=== PATIENT | male | born 2000 | race African-American/Black ===

== ENCOUNTER 2025-02-23 18:56 | Emergency (ER) | payer SELFPAY ==
[~2025-02-23] VITALS: Ht 175.3 cm; Wt 70.4 kg
--- NOTE | 2025-02-23 19:18 | ED.PDOC ---
Eye-HPI HPI Comments PT PRESENTED TO ED FOR RIGHT UPPER MOLAR TOOTH PAIN X2 WEEK AGO WITH DECREASED APPETITE. PT STATED HE HAS NOT HAS HIS WISDOM TEETH REMOVED YET. HE HAS DIFFICULTY SWALLOWING, BREATHING, DENIES CHEST PAIN OR SHORTNESS OF BREATH NOTES NO FEVERS OR CHILLS NAUSEA OR VOMITING.. Chief Complaint: Tooth Pain Time Seen by MD: 19:04 Reviewed Notes: Nurses Notes, Medications, Allergies Allergies: Coded Allergies: No Known Drug Allergy (Verified Allergy, Unknown, 02/23/25) Home Meds Active Scripts Ibuprofen (Ibuprofen) 800 Mg Tab, 800 MG PO Q8HP PRN for 6 Days, #18 TAB Prov:SEVENMARY KATEK [employer]OR FORKLIFT OPERATOR 02/23/25 Amoxicillin & Pot Clavulanate (AUGMENTIN TABLET) 875 Mg Tb, 875 MG PO BID for 7 Days, #14 TAB Prov:PAPA AMEZCUA GENERAL LABOR FORKLIFT OPERATOR 02/23/25 Information Source: Patient Past Medical History PAST MEDICAL HISTORY: Denies Surgical History: Denies all surgeries Family History Family History: Unknown Social History Smoker: Non-Smoker Alcohol: Denies ETOH Use Drugs: Denies Drug Use Constitutional: denies: chills, diaphoresis, fatigue, fever, malaise, sweats, weakness, others EENTM: reports: others (DENTAL PAIN); denies: blurred vision, double vision, ear bleeding, ear discharge, ear drainage, ear pain, ear ringing, eye pain, eye redness, hearing loss, mouth pain, mouth swelling, nasal discharge, nose bleeding, nose congestion, nose pain, photophobia, tearing, throat pain, throat swelling, voice changes Respiratory: denies: cough, hemoptysis, orthopnea, SOB at rest, shortness of breath, SOB with excertion, stridor, wheezing, others Cardiovascular: denies: chest pain, dizzy spells, diaphoresis, Dyspnea on exertion, edema, irregular heart beat, left arm pain, lightheadedness, palpitations, PND, syncope, others Gastrointestinal: denies: abdomen distended, abdominal pain, blood streaked bowels, constipated, diarrhea, dysphagia, difficulty swallowing, hematemesis, melena, nausea, poor appetite, poor fluid intake, rectal bleeding, rectal pain, vomiting, others Genitourinary: denies: burning, dysuria, flank pain, frequency, hematuria, incontinence, penile discharge, penile sore, pain, testicle pain, testicle swelling, urgency, others Neurological: denies: dizziness, fainting, headache, left sided numbness, left sided weakness, numbness, paresthesia, pre-existing deficit, right sided numbness, right sided weakness, seizure, speech problems, tingling, tremors, weakness, others Musculoskeletal: denies: back pain, gout, joint pain, joint swelling, muscle pain, muscle stiffness, neck pain, others Integumetry: denies: bruises, change in color, change in hair/nails, dryness, laceration, lesions, lumps, rash, wounds, others Allergic/Immunocompromised: denies: Difficulty Healing, Frequent Infections, Hives, Itching, others Hematologic/Lymphatic: denies: anemia, blood clots, easy bleeding, easy bruising, swollen glands, others Endocrine: denies: excessive hunger, excessive sweating, excessive thirst, excessive urination, flushing, intolerance to cold, intolerance to heat, unexplained weight gain, unexplained weight loss, others Psychiatric: denies: anxiety, bipolar disorder, depression, hopeless, panic disorder, schizophrenia, sleepless, suicidal, others Physical Exam General Appearance: No Apparent Distress, Normal HEENT: Pharynx Normal, TMs Normal, Other (RIGHT BACK MOLAR 18 IN WISDOM TOOTH COMING IN NO NOTED OBVIOUS ABSCESS ERYTHEMA OR DRAINAGE.) Neck: Full Range of Motion, Non-Tender, Normal, Normal Inspection Respiratory: Chest Non-Tender, Lungs Clear, No Accessory Muscle Use, No Respiratory Distress, Normal Breath Sounds Cardiovascular: No Edema, No JVD, No Murmur, No Gallop, Normal Peripheral Pulses, Regular Rate/Rhythm Breast Exam: Deferred Gastrointestinal: No Organomegaly, Non Tender, No Pulsatile Mass, Normal Bowel Sounds, Soft Genitalia: Deferred Pelvic: Deferred Rectal: Deferred Extremities: No calf tenderness, Normal capillary refill, Normal inspection, Normal range of motion, Non-tender, No pedal edema Musculoskeletal : Apperance: Normal Neurologic: Alert, distance education coordinator II-XII nml as Tested, No Motor Deficits, Normal Affect, Normal Mood, No Sensory Deficits Cerebellar Function: Normal Reflexes: Normal Skin: Dry, Normal Color, Warm Lymphatic: No Adenopathy Was a procedure done? Was a procedure done?: No EENT DIFF Eye: N/A Sore Throat: Adrián's Angina X-Ray, Labs, Meds, VS Vital Signs Date Time Temp Pulse Resp B/P (MAP) Pulse Ox O2 Delivery O2 Flow Rate FiO2 02/23/25 20:09 98.0 58 16 117/66 (83) 99 98.0 02/23/25 20:09 58 16 99 Room Air 02/23/25 19:20 99.2 62 16 126/85 (99) 97 99.2 Current Medications Medications (Trade) Dose Ordered Sig/Man Route Start Time Stop Time Status Last Admin Benzocaine (Hurricaine Dickinson) 1 spr ONCE ONCE MT 02/23/25 20:00 02/23/25 20:06 DC 02/23/25 20:09 Ketorolac Tromethamine (Toradol Injection) 60 mg ONCE ONCE IM 02/23/25 20:00 02/23/25 20:06 DC 02/23/25 20:09 Acetaminophen/ Hydrocodone Bitart (Sweet 5/325MG Tab) 2 tab ONCE ONCE PO 02/23/25 20:00 02/23/25 20:06 DC 02/23/25 20:09 X-Ray, Labs, Meds, VS Comment PATIENT GIVEN TORADOL 60 MG IM, NORCO 10 MG P.O., AND HURRICAINE SPRAY. REPORTS IMPROVEMENT IN PAIN REQUESTING DISCHARGE AT THIS TIME. SCRIPT ANTIBIOTICS TO PHARMACY ON FILE. ADVISED TO TAKE MEDICATIONS PRESCRIBED SIDE EFFECTS DISCUSSED. ADVISED TO CALL TUESDAY MORNING AND SCHEDULE AN APPOINTMENT WITH DENTAL. ADVISED ON ER RETURN PRECAUTIONS PATIENT INDICATES UNDERSTANDING AGREES WITH DISCHARGE PLAN OF CARE. Time of 1ST Reevaluation: 19:17 Reevaluation 1ST: Unchanged Time of 2ND Reevaluation: 20:00 Reevaluation 2ND: Improved Patient Education/Counseling: Diagnosis, Treatment, Prognosis, Need For Follow Up Family Education/Counseling: No Family Present Departure 1 Departure Time of Disposition: 20:06 Impression: Primary Impression: Pain, dental Disposition: 01 HOME / SELF CARE / HOMELESS Condition: Stable e-Prescriptions Ibuprofen (Ibuprofen) 800 Mg Tab 800 MG PO Q8HP PRN for 6 Days, #18 TAB Prov: PAPA AMEZCUA 02/23/25 Amoxicillin & Pot Clavulanate (AUGMENTIN TABLET) 875 Mg Tb 875 MG PO BID for 7 Days, #14 TAB Prov: PAPA AMEZCUAP 02/23/25 Discharged With: Self Critical Care Note Critical Care Time?: No Stability Stability form required: PAPA Maxwell February 23, 2025 19:18
[2025-02-23] MEDS ORDERED: IBUP-1456 PO (20:08)
[2025-02-23] MEDS ORDERED: AUG875T PO (20:08)
[2025-02-23 20:09] VITALS: BP 117/66; PULSE 58; RESP 16; TEMP 98; O2SAT 99
[2025-02-23] MEDS: KETOROLAC TROMETH 60MG/2ML VIAL IM ONE (20:09)
[2025-02-23] MEDS: HYDROcodone-ACET 5/325MG TAB PO ONE (20:09)
[2025-02-23] MEDS: BENZOCAINE (DENTAL) 20 % SPRAY 60ML MT ONE (20:09)
== END 2025-02-23 20:56 | disposition home or self-care (01) ==
LOC: ER 19:04
DX: K08.89 Other specified disorders of teeth and supporting structures (principal)
CPT/HCPCS: 96372; 99283; J1885